=== PATIENT | female | born 2000 | race Caucasian/White ===

== ENCOUNTER 2022-09-09 19:43 | Emergency (ER) | payer MEDICAID, SELFPAY ==
[2022-09-09 19:46] VITALS: BP 107/69; PULSE 137; RESP 15; TEMP 37.1; O2SAT 99; BMI 28.5
--- NOTE | 2022-09-09 20:08 | EDS_ITS ---
HPI <MACARENA Worley - Last Filed: 09/09/22 21:10> History of Present Illness Chief Complaint: Fever Narrative Narrative: Patient presenting today with fever, body aches, painful ears, chills, sweats, headache, and nausea that started yesterday. She states that she had a virtual visit with urgent care and told them that she has been having a 104.7 F degree fever and they instructed her to come to the emergency department. She states she has been taking ibuprofen for fever. She denies any sick contacts. She denies any chest pain, shortness of breath, nasal congestion, sore throat, abdominal pain, vomiting, and diarrhea. PFSH <MACARENA Worley - Last Filed: 09/09/22 21:10> [facility] Medical History Hx of migraines Home Medications No Known/Unobtainable [No Known Home Medications] 04/01/16 [History Last Taken Unknown] Allergy/AdvReac Type Severity Reaction Status Date / Time acetaminophen [From Tylenol] AdvReac Other Verified 09/09/22 19:51 Social History Smoking Status: Former smoker ROS <MACARENA Worley - Last Filed: 09/09/22 21:10> ROS ED Constitutional Constitutional ED: Reports chills, fever(s) and sweats Eyes Eyes: Denies blurry vision or diplopia ENT ENT ED: Reports ear pain; Denies rhinorrhea or sore throat Cardiovascular Cardiovascular: Denies chest pain or palpitations Respiratory/Chest Respiratory/Chest: Denies cough or dyspnea Gastrointestinal Gastrointestinal: Reports nausea; Denies abdominal pain, diarrhea or vomiting Genitourinary Genitourinary ED: Denies dysuria, hematuria or urinary urgency Musculoskeletal Musculoskeletal: Reports myalgias Integumentary Denies abscess, Abrasions or rash Neurologic Neurologic: Denies weakness Psychiatric Psychiatric: Denies anxiety, depression, suicidal ideation or suicidal thoughts EXAM <MACARENA Worley - Last Filed: 09/09/22 21:10> Physical Exam Const Vital Signs: 09/09/22 19:46 09/09/22 20:07 09/09/22 21:44 Temperature 98.7 F 100.9 F H Temperature Source Oral Oral Pulse Rate 137 H Respiratory Rate 15 Respiratory Effort Normal Non-Labored Blood Pressure 107/69 Blood Pressure Mean 81 Pulse Ox 99 Oxygen Delivery Method Room Air 09/09/22 22:20 Temperature 100.7 F H Temperature Source Oral Pulse Rate 129 H Respiratory Rate Respiratory Effort Blood Pressure Blood Pressure Mean Pulse Ox 96 Oxygen Delivery Method Room Air Positive well nourished, well developed and no apparent distress General Appearance ED: well developed HEENT Reports normocephalic, head/scalp atraumatic and TM's clear HEENT Narrative: Posterior oropharynx slightly erythemic, tonsils without exudate, uvula midline, no trismus, no drooling Tympanic Membrane ED: Yes TM's clear Mouth ED: Yes moist mucous membranes normal Eyes PERRL and EOMs intact bilaterally Neck full ROM and supple Chest Wall inspection of chest normal Resp normal respiratory effort and clear to auscultation bilaterally Cardio regular rate and regular rhythm GI soft to palpation, non-tender, non-distended and no masses Back/Spine normal ROM and normal to inspection Extremity normal to inspection and full ROM Neuro oriented x3, CN's II-XII intact bilaterally, moves all extremities, no focal motor deficits and no sensory deficits noted Sensorium / Orientation: awake and alert Psych mental status grossly normal and thought process normal Skin no rashes or lesions noted and no wounds <Dr. Antonio Mansfield DO - Last Filed: 09/09/22 22:31> Physical Exam Const Vital Signs: 09/09/22 19:46 09/09/22 20:07 09/09/22 21:44 Temperature 98.7 F 100.9 F H Temperature Source Oral Oral Pulse Rate 137 H Respiratory Rate 15 Respiratory Effort Normal Non-Labored Blood Pressure 107/69 Blood Pressure Mean 81 Pulse Ox 99 Oxygen Delivery Method Room Air 09/09/22 22:20 Temperature 100.7 F H Temperature Source Oral Pulse Rate 129 H Respiratory Rate Respiratory Effort Blood Pressure Blood Pressure Mean Pulse Ox 96 Oxygen Delivery Method Room Air [facility] <MACARENA Worley - Last Filed: 09/09/22 21:10> [facility] Narrative Medical decision making narrative: Patient presenting today with flulike symptoms that started yesterday. She states that she had a 104.7 ?F temperature today around 6 PM and that is when telehealth urgent care told her to come to the emergency department. She has not had any any antipyretics since 2 PM and is 98.7 ?F here. She is well- appearing and in no acute distress. Swabs will be obtained to rule out COVID and flu. Patient is tachycardic here, she has been given a liter of fluids. On reexamination she states she feels nauseous, she has been given Zofran. Because of her tachycardia, labs will be obtained. Lab Data Labs: Laboratory Results - last 24 hr 09/09/22 09/09/22 21:30 21:30 WBC 8.8 RBC 5.10 Hgb 14.5 Hct 43.3 MCV 84.9 MCH 28.4 MCHC 33.5 RDW Std Deviation 39.9 RDW Coeff of Valeriano 12.9 Plt Count 183 MPV 10.9 Immature Gran % (Auto) 0.500 Neut % (Auto) 79.5 H Lymph % (Auto) 11.3 L Gulf % (Auto) 8.3 Eos % (Auto) 0.2 Baso % (Auto) 0.2 Absolute Neuts (auto) 7.0 Absolute Lymphs (auto) 0.99 Nucleated RBC % 0 Sodium 137 Potassium 3.8 Chloride 105 Carbon Dioxide 25.0 Anion Gap 7 BUN 11 Creatinine 0.77 Estim Creat Clear Calc 93.19 Est GFR (MDRD) Af Amer 118 Est GFR (MDRD) Non-Af 97 BUN/Creatinine Ratio 14.2 Glucose 111 H Calcium 9.4 <Dr. Antonio Mansfield, DO - Last Filed: 09/09/22 22:31> [facility] Narrative Medical decision making narrative: Patient presenting today with flulike symptoms that started yesterday. She states that she had a 104.7 ?F temperature today around 6 PM and that is when telehealth urgent care told her to come to the emergency department. She has not had any any antipyretics since 2 PM and is 98.7 ?F here. She is well- appearing and in no acute distress. Swabs will be obtained to rule out COVID and flu. Patient is tachycardic here, she has been given a liter of fluids. On reexamination she states she feels nauseous, she has been given Zofran. Because of her tachycardia, labs will be obtained. This patient was seen with a PA/ACUPRESSURE THERAPIST Individually assessed they patient including history and physical. I have reviewed everything on the chart that is available and agree with the documentation provided by the PA/ACUPRESSURE THERAPIST including discussion about the assessment, treatment plan, discussion, and return precautions. Patient presenting with fever, body aches, generalized weakness. She states that her ears hurt very bad. On exam she does not appear to have any otitis media. She states her temperature was 104.7 at home. She denies coughing or shortness of breath. She denies urinary or vaginal complaints. Denies abdominal pain. She developed nausea since has been in the ER. She states she feels like he is hot. I checked her temperature at the bedside initially she was 98.7 and she is 102.9. Patient given Tylenol. Since her heart rate 130 I established an IV and present she is complaining of headache, nausea she was given Reglan, Benadryl. She was given Toradol for her fever because she is allergic to Tylenol. Patient reevaluated at 10:30 PM. She is feeling improved. Her fever is coming down. Viral testing was negative. Recommended fever control, plenty of fluids. I will discharge her home with some Zofran. Impression: 1. Viral syndrome Lab Data Labs: Laboratory Results - last 24 hr 09/09/22 09/09/22 21:30 21:30 WBC 8.8 RBC 5.10 Hgb 14.5 Hct 43.3 MCV 84.9 MCH 28.4 MCHC 33.5 RDW Std Deviation 39.9 RDW Coeff of Valeriano 12.9 Plt Count 183 MPV 10.9 Immature Gran % (Auto) 0.500 Neut % (Auto) 79.5 H Lymph % (Auto) 11.3 L Gulf % (Auto) 8.3 Eos % (Auto) 0.2 Baso % (Auto) 0.2 Absolute Neuts (auto) 7.0 Absolute Lymphs (auto) 0.99 Nucleated RBC % 0 Sodium 137 Potassium 3.8 Chloride 105 Carbon Dioxide 25.0 Anion Gap 7 BUN 11 Creatinine 0.77 Estim Creat Clear Calc 93.19 Est GFR (MDRD) Af Amer 118 Est GFR (MDRD) Non-Af 97 BUN/Creatinine Ratio 14.2 Glucose 111 H Calcium 9.4 Discharge Plan Triage Chief Complaint: Fever ED Midlevel Provider: Yolande Adrian ED Provider: Antonio Mansfield Dx/Rx/DC Orders Prescriptions: No Action No Known Home Medications Primary Care Provider: Oberhauser,Candida Referrals: [facility] Doctor,Out of [Non-Staff] -
[2022-09-09] MEDS: Ondansetron 4 MG/2 ML Vial IV (21:35)
[2022-09-09] MEDS: 0.9% Normal Saline 1,000 ML 999 ML IV (21:36)
[2022-09-09] MEDS: DiphenhydrAMINE 50 MG/ML Syringe 25 MG IV (21:39)
[2022-09-09] MEDS: Ketorolac 15 MG/ML Vial IV (21:40)
[2022-09-09] MEDS: Metoclopramide 10 MG/2 ML Vial IV (21:40)
[2022-09-09 21:42] LABS: Absolute Lymphocyte Count 0.99 X10^3/uL (0.83-4.51); Basophil# 0.02 X10^3/uL; Basophil% 0.2 % (0-1); Eosinophil# 0.02 X10^3/uL; Eosinophils% 0.2 % (0-5); Hematocrit 43.3 % (37-47); Hemoglobin 14.5 g/dL (12.0-15.0); Lymphocyte # 0.99 X10^3/ul (0.83-4.51); Lymphocyte % 11.3 % (19-41); Mean Corp Hgb Conc 33.5 g/dL (32-36); Mean Corpuscular Hgb 28.4 pg (27.0-32.0); Mean Corpuscular Volume 84.9 fL (81-99); Mean Platelet Vol. 10.9 fl (6.2-12.0); Monocyte# 0.73 X10^3/uL; Monocyte% 8.3 % (0-10); NRBC Flagged by Analyzer 0 % (0-5); Neutrophil # 6.99 X10^3/uL (2.7-7.7); Neutrophil % 79.5 % (47-70); Platelet Count 183 K/mm3 (150-450); RBC Distribution Width CV 12.9 % (11.6-14.6); RBC Distribution Width SD 39.9 fl (35.1-43.9); White Blood Count 8.8 K/mm3 (4.4-11.0)
[2022-09-09 21:44] VITALS: TEMP 38.3
[2022-09-09 22:01] LABS: Anion Gap 7 (5-15); BUN 11 mg/dL (7-18); BUN/Creat Ratio 14.2 RATIO (10-20); Calcium,Total 9.4 mg/dL (8.5-10.1); Chloride 105 mmol/L (98-107); Creatinine, Serum 0.77 mg/dL (0.55-1.02); EST Glomerular Filtration Rate 97 mL/min (>60); Est Glom Filt Rate - Afr Amer 118 mL/min (>60); Estimated Creatinine Clearance 93.19 ml/min; Glucose 111 mg/dL (74-106); Potassium 3.8 mmol/L (3.5-5.1); Sodium Level 137 mmol/L (136-145)
[2022-09-09 22:20] VITALS: PULSE 129; TEMP 38.2; O2SAT 96
== END 2022-09-09 23:07 | disposition home or self-care (01) ==
PROVIDERS: Physician Assistant; Emergency Provider Student in an Organized Health Care Education/Training Program; PCP Internal Medicine; Visit Provider Student in an Organized Health Care Education/Training Program
DX: B34.9 Viral infection, unspecified (principal); R00.0 Tachycardia, unspecified; Z87.891 Personal history of nicotine dependence
CPT/HCPCS: 80048; 85025; 87428; 96361; 96374; 96375; 99281; 99282; J7030; A4216; J2405